=== PATIENT | female | born 1945 | race Caucasian/White ===

== ENCOUNTER 2019-11-30 13:15 | Inpatient (IN) ==
[2019-11-30] MEDS ORDERED: Naloxone 0.4 MG/ML INJ IVP PRN ×2 (16:41→16:48)
[2019-11-30] MEDS ORDERED: Gentamicin 80 MG in 0.9 % Sodium Chloride 100 ML IVPB SCH (18:00)
[2019-11-30 21:02] LABS: BUN/Creatinine Ratio 42 (6-26); Blood Urea Nitrogen 25 mg/dL (8-23); eGFR For African Americans > 60 (> 60); eGFR For Non-African Americans > 60 (> 60)
[2019-11-30] MEDS ORDERED: Gentamicin 60 MG in 0.9 % Sodium Chloride 100 ML IVPB ONE (22:00)
[2019-11-30] MEDS: *HR* Enoxaparin 80 MG/0.8 ML SYRINGE SQ SCH (22:56)
[2019-12-01] MEDS: *HR* HYDROcodone/Acet 5/325 mg TABLET PO PRN ×2 (00:56→09:02)
[2019-12-01] MEDS: *HR* Enoxaparin 80 MG/0.8 ML SYRINGE SQ SCH ×2 (06:08→16:36)
[2019-12-01] MEDS: Gentamicin 50 MG in 0.9 % Sodium Chloride 100 ML IVPB SCH (06:08)
[2019-12-01 06:26] LABS: Mean Platelet Volume 9.7 fL (9.4-12.4)
[2019-12-01 06:28] LABS: Basophils % 0.5 %; Eosinophils # 0.3 K/mcL (0.0-0.6); Eosinophils % 4.6 %; Hematocrit 29.6 % (35.3-44.9); Hemoglobin 8.2 g/dL (11.5-15.4); Immature Granulocytes % 0.3 % (0-4); Lymphocytes # 1.9 K/mcL (0.6-4.6); Lymphocytes % 31.8 %; Mean Corpuscular HGB Conc 27.7 g/dL (31.6-35.5); Mean Corpuscular Hemoglobin 21.6 pg (28.0-33.3); Mean Corpuscular Volume 77.9 fL (83.0-100.0); Monocytes # 0.6 K/mcL (0.0-1.3); Monocytes % 9.5 %; Platelet Count 315 K/mcL (140-400); Red Cell Distribution Width 22.6 % (11.5-14.5); Segmented Neutrophils % 53.3 %; White Blood Count 5.9 K/mcL (4.3-11.1)
[2019-12-01 06:31] LABS: Neutrophils # 3.1 K/mcL (1.6-8.9)
[2019-12-01 06:39] LABS: Prothrombin Time 11.1 Seconds (9.4-12.1)
[2019-12-01 06:42] LABS: Activated Partial Thrombo Time 33.7 Seconds (26.0-36.0)
[2019-12-01 06:43] LABS: Anisocytosis 2+ (Not Present); Hypochromasia Present (Not Present)
[2019-12-01 06:44] LABS: Microcytosis Present (Not Present); Platelet Estimate Normal (Normal)
[2019-12-01 06:57] LABS: BUN/Creatinine Ratio 49 (6-26); Blood Urea Nitrogen 21 mg/dL (8-23); Calcium 9.8 mg/dL (8.6-10.3); Carbon Dioxide 27 mEq/L (23-29); Chloride 107 mEq/L (98-107); Glucose 84 mg/dL (70-105); Osmolality,Calculated 290 (280-300); Potassium 4.8 mEq/L (3.5-5.1); Sodium 139 mEq/L (136-145); eGFR For African Americans > 60 (> 60); eGFR For Non-African Americans > 60 (> 60)
[2019-12-01] MEDS: Gabapentin 300 MG CAPSULE PO SCH ×2 (16:35→21:50)
[2019-12-01] MEDS: Colistin (Colistimethate) 150 MG in 0.9 % Sodium Chloride 50 ML IVPB SCH (16:36)
[2019-12-02] MEDS: Colistin (Colistimethate) 150 MG in 0.9 % Sodium Chloride 50 ML IVPB SCH ×2 (03:20→16:12)
[2019-12-02] MEDS: *HR* Enoxaparin 80 MG/0.8 ML SYRINGE SQ SCH (05:50)
[2019-12-02] MEDS: *HR* HYDROcodone/Acet 5/325 mg TABLET PO PRN ×2 (05:50→11:34)
[2019-12-02 06:53] LABS: Immature Granulocytes % 0.2 % (0-4); Mean Corpuscular HGB Conc 28.3 g/dL (31.6-35.5)
[2019-12-02 06:55] LABS: Basophils % 0.7 %; Eosinophils # 0.2 K/mcL (0.0-0.6); Eosinophils % 3.2 %; Hematocrit 31.8 % (35.3-44.9); Mean Corpuscular Hemoglobin 21.8 pg (28.0-33.3); Mean Corpuscular Volume 77.2 fL (83.0-100.0); Mean Platelet Volume 9.7 fL (9.4-12.4); Monocytes # 0.5 K/mcL (0.0-1.3); Monocytes % 8.5 %; Neutrophils # 3.3 K/mcL (1.6-8.9); Platelet Count 308 K/mcL (140-400); Red Blood Count 4.12 M/mcL (3.82-4.97); Red Cell Distribution Width 22.4 % (11.5-14.5); Segmented Neutrophils % 58.4 %; White Blood Count 5.7 K/mcL (4.3-11.1)
[2019-12-02 06:56] LABS: Lymphocytes # 1.7 K/mcL (0.6-4.6)
[2019-12-02 07:13] LABS: BUN/Creatinine Ratio 41 (6-26); Blood Urea Nitrogen 15 mg/dL (8-23); Calcium 10.2 mg/dL (8.6-10.3); Carbon Dioxide 31 mEq/L (23-29); Chloride 105 mEq/L (98-107); Glucose 82 mg/dL (70-105); Osmolality,Calculated 290 (280-300); Potassium 4.3 mEq/L (3.5-5.1); Sodium 140 mEq/L (136-145); eGFR For African Americans > 60 (> 60); eGFR For Non-African Americans > 60 (> 60)
[2019-12-02 07:16] LABS: Anisocytosis 1+ (Not Present); Hypochromasia Present (Not Present); Platelet Estimate Normal (Normal)
[2019-12-02] MEDS: Aspirin Enteric Coated 81 MG Tablet PO SCH (09:34)
[2019-12-02] MEDS: Gabapentin 300 MG CAPSULE PO SCH ×4 (09:34→20:52)
[2019-12-02] MEDS: Acetaminophen 325 MG TABLET PO PRN (20:52)
[2019-12-02] MEDS: Apixaban 5 MG TABLET PO SCH (20:52)
[2019-12-03] MEDS: Gentamicin 50 MG in 0.9 % Sodium Chloride 100 ML IVPB SCH (01:00)
[2019-12-03] MEDS: Colistin (Colistimethate) 150 MG in 0.9 % Sodium Chloride 50 ML IVPB SCH ×2 (03:35→14:54)
[2019-12-03 06:04] LABS: Basophils # 0.1 K/mcL (0.0-0.2); Basophils % 0.8 %; Eosinophils # 0.3 K/mcL (0.0-0.6); Eosinophils % 4.3 %; Hematocrit 29.7 % (35.3-44.9); Hemoglobin 8.7 g/dL (11.5-15.4); Immature Granulocytes % 1.7 % (0-4); Lymphocytes # 2.1 K/mcL (0.6-4.6); Lymphocytes % 32.5 %; Mean Corpuscular HGB Conc 29.3 g/dL (31.6-35.5); Mean Corpuscular Hemoglobin 21.6 pg (28.0-33.3); Mean Corpuscular Volume 73.7 fL (83.0-100.0); Mean Platelet Volume 9.7 fL (9.4-12.4); Monocytes # 0.7 K/mcL (0.0-1.3); Monocytes % 10.9 %; Neutrophils # 3.2 K/mcL (1.6-8.9); Platelet Count 252 K/mcL (140-400); Red Blood Count 4.03 M/mcL (3.82-4.97); Red Cell Distribution Width 22.1 % (11.5-14.5); Segmented Neutrophils % 49.8 %; White Blood Count 6.5 K/mcL (4.3-11.1)
[2019-12-03] MEDS ORDERED: Aminoglycoside Consult 1 EACH MC ONE (08:48)
[2019-12-03] MEDS: Gabapentin 300 MG CAPSULE PO SCH ×4 (10:40→22:12)
[2019-12-03] MEDS: *HR* HYDROcodone/Acet 5/325 mg TABLET PO PRN ×2 (10:40→23:12)
[2019-12-03] MEDS: Apixaban 5 MG TABLET PO SCH ×2 (10:40→22:12)
[2019-12-03] MEDS: Aspirin Enteric Coated 81 MG Tablet PO SCH (10:40)
[2019-12-04] MEDS: Colistin (Colistimethate) 150 MG in 0.9 % Sodium Chloride 50 ML IVPB SCH ×2 (03:50→15:19)
[2019-12-04 05:29] LABS: Hemoglobin 8.4 g/dL (11.5-15.4); Immature Granulocytes % 0.3 % (0-4)
[2019-12-04 05:30] LABS: Basophils % 0.3 %; Eosinophils # 0.2 K/mcL (0.0-0.6); Eosinophils % 2.9 %; Hematocrit 29.5 % (35.3-44.9); Lymphocytes # 1.8 K/mcL (0.6-4.6); Lymphocytes % 28.1 %; Mean Corpuscular HGB Conc 28.5 g/dL (31.6-35.5); Mean Corpuscular Hemoglobin 22.4 pg (28.0-33.3); Mean Corpuscular Volume 78.7 fL (83.0-100.0); Mean Platelet Volume 9.8 fL (9.4-12.4); Monocytes # 0.8 K/mcL (0.0-1.3); Monocytes % 12.2 %; Neutrophils # 3.7 K/mcL (1.6-8.9); Platelet Count 282 K/mcL (140-400); Red Blood Count 3.75 M/mcL (3.82-4.97); Red Cell Distribution Width 22.3 % (11.5-14.5); Segmented Neutrophils % 56.2 %; White Blood Count 6.5 K/mcL (4.3-11.1)
[2019-12-04 05:45] LABS: BUN/Creatinine Ratio 35 (6-26); Blood Urea Nitrogen 18 mg/dL (8-23); Calcium 9.9 mg/dL (8.6-10.3); Carbon Dioxide 30 mEq/L (23-29); Chloride 104 mEq/L (98-107); Glucose 78 mg/dL (70-105); Osmolality,Calculated 287 (280-300); Potassium 4.7 mEq/L (3.5-5.1); Sodium 138 mEq/L (136-145); eGFR For African Americans > 60 (> 60); eGFR For Non-African Americans > 60 (> 60)
[2019-12-04 05:48] LABS: Anisocytosis 3+ (Not Present); Hypochromasia Present (Not Present); Microcytosis Present (Not Present); Platelet Estimate Normal (Normal); Polychromasia 1+ (Not Present)
[2019-12-04] MEDS: Acetaminophen 325 MG TABLET PO PRN (06:07)
[2019-12-04] MEDS: Apixaban 5 MG TABLET PO SCH ×2 (08:57→22:08)
[2019-12-04] MEDS: Gabapentin 300 MG CAPSULE PO SCH ×4 (08:57→22:08)
[2019-12-04] MEDS: Aspirin Enteric Coated 81 MG Tablet PO SCH (08:57)
[2019-12-04] MEDS: *HR* HYDROcodone/Acet 5/325 mg TABLET PO PRN (23:54)
[2019-12-05] MEDS: Colistin (Colistimethate) 150 MG in 0.9 % Sodium Chloride 50 ML IVPB SCH ×2 (05:20→15:58)
[2019-12-05] MEDS: Apixaban 5 MG TABLET PO SCH ×2 (08:16→21:46)
[2019-12-05] MEDS: Gabapentin 300 MG CAPSULE PO SCH ×4 (08:16→21:46)
[2019-12-05] MEDS: Aspirin Enteric Coated 81 MG Tablet PO SCH (08:16)
[2019-12-06] MEDS: Colistin (Colistimethate) 150 MG in 0.9 % Sodium Chloride 50 ML IVPB SCH ×2 (04:14→14:58)
[2019-12-06] MEDS: *HR* HYDROcodone/Acet 5/325 mg TABLET PO PRN ×2 (04:54→14:59)
[2019-12-06] MEDS: Aspirin Enteric Coated 81 MG Tablet PO SCH (09:22)
[2019-12-06] MEDS: Apixaban 5 MG TABLET PO SCH (09:22)
[2019-12-06] MEDS: Gabapentin 300 MG CAPSULE PO SCH ×2 (09:23→14:58)
[2019-12-06 09:58] LABS: Basophils % 0.4 %; Eosinophils # 0.2 K/mcL (0.0-0.6); Eosinophils % 3.5 %; Hematocrit 26.3 % (35.3-44.9); Hemoglobin 7.5 g/dL (11.5-15.4); Immature Granulocytes % 0.3 % (0-4); Lymphocytes # 1.9 K/mcL (0.6-4.6); Lymphocytes % 27.2 %; Mean Corpuscular HGB Conc 28.5 g/dL (31.6-35.5); Mean Corpuscular Hemoglobin 22.4 pg (28.0-33.3); Mean Corpuscular Volume 78.5 fL (83.0-100.0); Mean Platelet Volume 9.6 fL (9.4-12.4); Monocytes # 0.7 K/mcL (0.0-1.3); Monocytes % 10.7 %; Platelet Count 254 K/mcL (140-400); Red Blood Count 3.35 M/mcL (3.82-4.97); Red Cell Distribution Width 22.2 % (11.5-14.5); Segmented Neutrophils % 57.9 %; White Blood Count 6.9 K/mcL (4.3-11.1)
[2019-12-06 10:12] LABS: BUN/Creatinine Ratio 28 (6-26); Blood Urea Nitrogen 23 mg/dL (8-23); Carbon Dioxide 30 mEq/L (23-29); Chloride 101 mEq/L (98-107); Glucose 134 mg/dL (70-105); Osmolality,Calculated 286 (280-300); Potassium 4.4 mEq/L (3.5-5.1); Sodium 135 mEq/L (136-145); eGFR For African Americans > 60 (> 60); eGFR For Non-African Americans > 60 (> 60)
[2019-12-06 10:18] LABS: Anisocytosis 2+ (Not Present); Hypochromasia Present (Not Present); Platelet Estimate Normal (Normal)
[2019-12-06 10:19] LABS: Microcytosis Present (Not Present)
[2019-12-06] MEDS ORDERED: polyethylene glycoL 3350 17 GM POWD.PACK PO PRN (10:33)
[2019-12-06 12:04] LABS: Adenovirus Not Detected (Not Detect); Bordetella Pertussis Not Detected (Not Detect); Chlamydophila pneumoniae Not Detected (Not Detect); Coronavirus 229E Not Detected (Not Detect); Coronavirus HKU1 Not Detected (Not Detect); Coronavirus NL63 Not Detected (Not Detect); Coronavirus OC43 Not Detected (Not Detect); Human Metapneumovirus Not Detected (Not Detect); Human Rhinovirus/Enterovirus Not Detected (Not Detect); Influenza A Subtype 2009 H1 Not Detected (Not Detect); Influenza B Not Detected (Not Detect); Mycoplasma pneumoniae Not Detected (Not Detect); Parainfluenza Virus 1 Not Detected (Not Detect); Parainfluenza Virus 2 Not Detected (Not Detect); Parainfluenza Virus 3 Not Detected (Not Detect); Parainfluenza Virus 4 Not Detected (Not Detect); Respiratory Syncytial Virus Not Detected (Not Detect)
[2019-12-06 15:31] VITALS: BP 126/73
[2019-12-09] MEDS ORDERED: Apixaban 5 MG TABLET PO SCH (21:00)
== END 2019-12-06 16:53 | DRG 571 ==
LOC: 3ANU → SUATTDRO 17:20
PROVIDERS: ADMIT Internal Medicine; ATTEND Internal Medicine